=== PATIENT | female | born 1995 | race African-American/Black ===

== ENCOUNTER 2020-11-15 11:33 | Emergency (ER) | payer OTHER | END 2020-11-15 13:20 | disposition left against medical advice (07) | LOC: ER 11:33 | DX: O46.91 Antepartum hemorrhage, unspecified, first trimester (principal); Z3A.01 Less than 8 weeks gestation of pregnancy; Z53.21 Procedure and treatment not carried out due to patient leaving prior to being seen by health care provider ==